=== PATIENT | female | born 1990 | race Caucasian/White ===

== ENCOUNTER → 2016-09-12 | Outpatient (CLI) | payer OTHER ==
--- NOTE | 2016-09-12 15:21 | US ---
Neck ultrasound Indication: Left supraclavicular area that is palpable. Technique: Supraclavicular limited ultrasound was performed. Findings: Multiple lymph nodes are found in the supraclavicular region, at least 6. The largest ones are as follows: 1.4 cm x 1.1 x 1.4 cm; 1.8 x 1.3 x 2 cm; and 0.8 x 0.6 x 1.1 cm. These are ovoid, wit h increased vascularity. The largest 2-cm lesion above dictated doesn't seem to have a central fatty hilum. However, I do not see a normal fatty hilum in the other two lymph nodes that are measured. The y are well circumscribed. Otherwise, smaller shotty lymph nodes are seen. The carotid and jugular vascular anatomy are normal. Impression: Multiple lymph nodes at the left supraclavicular area. Overall, they have a full, hypoec hoic character, some without normal central fatty hilum. I am concerned in general of an infiltrative process as the source of this. Reactive lymphadenopathy, if patient does clinically have a reason fo r it from an infectious standpoint, is not completely ruled out, however. A follow-up required message has been communicated to ALMA ROSA Phelps via the [employer] Critical Result system on 09/12/2016 14:21, Message ID [id number].
== END ==
LOC: FIMAGING 08:53
PROVIDERS: ATTEND Physician Assistant
DX: R59.0 Localized enlarged lymph nodes (principal)

== ENCOUNTER → 2016-09-23 | Outpatient (CLI) | payer OTHER ==
[~2016-09-23] MED LIST: LIDOCAINE 1% 30 ML SDV ONE; NA BICARBONATE 50 MEQ/50 ML VIAL ONE
--- NOTE | 2016-09-23 11:24 | US ---
Ultrasound-Guided Left Supraclavicular Lymph Node Biopsy History: 26-year-old with left supraclavicular adenopathy. PQRS Crosscutting Measure #226: Current tobacco user: No. Comparison: Neck ultrasound September 12, 2016. Procedure: Prior to the procedure, the risks, benefits, and alternatives were discussed with the pat ient and informed written consent was obtained. A preprocedure ultrasound demonstrated numerous enlar ged left subclavicular lymph nodes, with a dominant 2.1 x 1.3 cm left supraclavicular lymph node iden tified for biopsy. A time out was performed. An overlying area of skin was marked, cleaned with Chlo raprep and sterilely draped. The skin and soft tissues were anesthetized with buffered 1% lidocaine. A 17-gauge coaxial needle was advanced to the margin of the lesion under ultrasound visualization usi ng sterile gel and a sterile probe cover. 6 18-gauge core biopsies were obtained and sent to patholo nilam, with 2 passes placed in Adelso's solution. The coaxial needle was removed and hemostasis was obtain ed with manual pressure. A bandage was placed. The patient tolerated the procedure well. Impression: Ultrasound-guided left supraclavicular lymph node biopsy as above.
[2016-09-26 14:54] LABS: FINAL DIAGNOSIS See Comments (()); MICROSCOPIC DESCRIPTION See Comments (())
== END ==
LOC: FIMAGING 09:39
PROVIDERS: ATTEND Internal Medicine Hematology & Oncology
PROC: 07B23ZX Excision of Left Neck Lymphatic, Percutaneous Approach, Diagnostic (ICD-10-PCS; principal; 2016-09-23)
DX: R59.0 Localized enlarged lymph nodes (principal)
CPT/HCPCS: 88184-90; 88185-91

== ENCOUNTER 2018-08-08 23:26 | Observation (INO) | payer MEDICAID | END 2018-08-09 00:31 | disposition home or self-care (01) | LOC: FLD 23:26 | PROVIDERS: ADMIT Obstetrics & Gynecology; ATTEND Obstetrics & Gynecology | DX: Z03.79 Encounter for other suspected maternal and fetal conditions ruled out (principal) | CPT/HCPCS: 59025; G0378 ==

== ENCOUNTER 2018-08-11 06:00 | Inpatient (IN) | payer MEDICAID ==
--- NOTE | 2018-08-10 18:24 | GHP ---
DATE OF ADMISSION: 08/11/2018 ADMITTING DIAGNOSES: 1. Intrauterine at 41 weeks and 1 day. 2. Induction of labor secondary to postdates. 3. Grade 3 placenta with numerous calcifications. HISTORY OF PRESENT ILLNESS: Patient is a 28-year-old 3, para 2-0-0-2, at 41 weeks and 1 day with estimated due date 08/03/2018 by last menstrual period 10/27/2017, and consistent with 12 week ultrasound. The patient presented to the office for routine visit. She states she is done being and wants to have the induction today. On exam she was found to be 1-2 cm, 50% effaced, -3 station. She states she is having irregular contractions that are annoying, but not painful. Good movement noted. Denies any leakage of fluid or vaginal bleeding. Today, an ultrasound was done that revealed an NAHOMY of 7.2 cm, however, grade 3 placenta with multiple calcifications. NST was done in the office that was reactive with Category 1 tracing. Discussed her cervix is unfavorable and will plan placement of Mason this afternoon in the office and Pitocin on Labor and Delivery with start of antibiotics for GBS in urine at 6 a.m. on 08/12. The patient was a transfer of care at 20 weeks and presented from [facility]. Anatomy scan was normal, size equals dates. Positive GBS bacteriuria on [facility] records. 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 Follow-up CXR was negative. Patient received Tdap during the . PAST OBSTETRICAL HISTORY: In 04/2011, she had a vaginal delivery to a viable female infant at 40 weeks, weighing 7 pounds 4 ounces, and had increased bleeding. In July 2013, she had another vaginal delivery at 40 weeks, a viable female weighing 6 pounds 4 ounces and had a hemorrhage and positive GBS. The patient did not need a blood transfusion. PAST GYNECOLOGICAL HISTORY: Age of menarche 11. Menstrual cycles are every 28 days for 7 days. LMP 10/27/2017. Positive test mid November 2017. The patient denies a history of abnormal Pap smears or any exposure to sexually transmitted diseases. 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 Denies any genital lesions. CURRENT MEDICATIONS: Include vitamins, DHA. ALLERGIES: No known drug allergies. PAST MEDICAL HISTORY: Positive PPD 2016, treatment with INH in 2016. The patient does have a history of migraines with Nexplanon. PAST SURGICAL HISTORY: Appendectomy in 2011. FAMILY HISTORY: Maternal grandmother with type 2 diabetes. Mother with lupus. Paternal aunt, breast cancer diagnosed at 34 years of age. SOCIAL HISTORY: Patient is and lives with her , and their 2 daughters. She is a teacher, . She denies any alcohol, tobacco, or illicit drug use. REVIEW OF SYSTEMS: 10-point review of systems is negative. Pertinent positives noted in HPI. LABS: H and H, 14.2 and 41.3, platelets 346. Blood type O positive, antibody negative. RPR nonreactive. Rubella immune. Hepatitis B surface antigen negative. HIV negative. Parvovirus nonimmune. UDS was negative. UA positive, GBS on culture 01/22/2018. Pap smear negative 2015. GC, chlamydia cultures negative 01/22/2018. H and H third-trimester, 13.3 and 38.9, platelets 299. One hour Glucola was 74. Again, the patient did receive Tdap. Declined the flu vaccine. ADMISSION PHYSICAL EXAMINATION: VITAL SIGNS: Stable. GENERAL: Patient is afebrile, well-nourished, well-developed female. Alert and oriented x3 in no apparent distress. SKIN: Warm, dry without rash. NEURO: Grossly intact. CARDIOVASCULAR: Regular rate and rhythm. LUNGS: Clear to auscultation bilaterally. ABDOMEN: Gravid, soft, nontender. PELVIC: Exam in the office she was noted to be 1-2 cm dilated, 50%, -3. EXTREMITIES: Normal to inspection without calf tenderness or edema. Ultrasound did reveal cephalic presentation. ASSESSMENT/PLAN: Patient is a 28-year-old 3, para 2-0-0-2, at 41 weeks and 1 day for induction of labor secondary to postdates and a grade 3 placenta with numerous calcifications. 1. Admit to Labor and Delivery for induction of labor. 2. The patient had a Mason bulb placed last evening that was inflated with 30 cc of normal saline. Patient tolerated well. No complications. 3. We will start Pitocin per protocol. 4. We will treat with penicillin-G for group B streptococcus prophylaxis. 5. Anticipate spontaneous vaginal delivery. /[id number]/MODL MTDD
[2018-08-11] MEDS ORDERED: AMMONIA AROMATIC 1 EACH AMP IH PRN (06:38)
[2018-08-11] MEDS ORDERED: MISOPROSTOL 200 MCG TAB PO PRN (06:38)
[2018-08-11] MEDS ORDERED: IBUPROFEN 600 MG TAB PO PRN (06:38)
[2018-08-11] MEDS ORDERED: LIDOCAINE 1% 300 MG/30 ML SDV SC PRN (06:38)
[2018-08-11] MEDS ORDERED: TERBUTALINE SULFATE 1 MG/ML VIAL IV PRN (06:38)
[2018-08-11] MEDS ORDERED: LR 500 ML IV PRN (06:38)
[2018-08-11] MEDS ORDERED: OXYTOCIN/RINGERS LACTATE 1,000 ML IV PRN (06:38)
[2018-08-11] MEDS ORDERED: OXYTOCIN/RINGERS LACTATE 500 ML IV SCH (06:38)
[2018-08-11] MEDS ORDERED: OLIVE OIL 118 ML BTL MISC PRN (06:38)
[2018-08-11] MEDS ORDERED: EPSOM SALT 454 GM TP PRN (06:38)
[2018-08-11] MEDS ORDERED: LR 1,000 ML IV PRN (06:38)
[2018-08-11 07:01] LABS: PLATELET COUNT 241 10^3/uL (150-400)
[2018-08-11] MEDS ORDERED: PENICILLIN G POTASSIUM 2,500,000 UNIT in D5W 150 ML IV SCH (07:15)
[2018-08-11] MEDS ORDERED: AMPICILLIN SODIUM 2 GM in NS 100 ML IV ONE (08:00)
--- NOTE | 2018-08-11 10:48 | OBPROG ---
Labor Progress Note Assessment/Plan: Assessment: 28 y/o [id number] @ 411/7 IOL secondary to post dates on pitocin Plan: status is reassuring, continue pitocin and I encouraged ambulation this am. Will await 2nd dose of Ampicillin and then attempt AROM. Pt has a h/o PPH with G2. We will have meds for preparation. 08/11/18 10:49 Subjective/Intrapartum Course: 08/11/18 10:23 Pt rested well overnight and this am. She is just beginning to feel some tightening and lost her mucus plug when voiding. Good FM, no LOF. Objective: 08/11/18 06:40 Patient ABO/Rh O POSITIVE 08/11/18 06:40 - SVE Dilation (cm): 3 Effacement (%): 50 Station: -3 Membranes: Intact - Contraction Pattern Assessment Current Contraction Pattern: Irregular - FHR Assessment Andujar FHR (bpm): 140 FHR Pattern Variability: Moderate FHR Category: 1 - AP Antepartum Course: 08/11/18 10:24 + GBS bacturia H/o +PPD s/p INH H/o PPH with G2 Oxytocin Orders Assessment - Pre-Induction/Augmentation Assessment Gestational Age: 41 week(s) and 1 day(s) ICD10 Worksheet Patient Problems: Problems Problem Status Onset Encounter for induction of labor Acute - ICD10 Problem Qualifiers (1) Encounter for induction of labor
[2018-08-11] MEDS ORDERED: AMMONIA AROMATIC 1 EACH AMP IH ONE (11:22)
[2018-08-11] MEDS ORDERED: TERBUTALINE SULFATE 1 MG/ML VIAL ONE (11:22)
[2018-08-11] MEDS ORDERED: MISOPROSTOL 200 MCG TAB ONE (11:22)
[2018-08-11] MEDS ORDERED: OXYTOCIN 10 UNIT/ML VIAL ONE (11:22)
[2018-08-11] MEDS ORDERED: LIDOCAINE 1% 300 MG/30 ML SDV ONE (11:22)
[2018-08-11] MEDS ORDERED: OLIVE OIL 118 ML BTL ONE (11:22)
[2018-08-11] MEDS: AMPICILLIN SODIUM 1 GM in NS 100 ML IV SCH ×2 (12:30→16:38)
--- NOTE | 2018-08-11 13:40 | OBPROG ---
Labor Progress Note Assessment/Plan: Assessment: 28 y/o [id number] @ 411/7 IOL secondary to post dates on pitocin Plan: Pt is having pain with vaginal exams, due to posterior positioning of her cervix. We discussed AROM, which I feel would augment her labor and help avoid high doses of pitocin. She would like to try nitrous for the AROM, so we are setting that up now. status is reassuring. 08/11/18 10:49 08/11/18 13:32 Subjective/Intrapartum Course: 08/11/18 10:23 Pt rested well overnight and this am. She is just beginning to feel some tightening and lost her mucus plug when voiding. Good FM, no LOF. 08/11/18 13:31 Pt is feeling more painful contractions and pelvic pressure. She has been ambulating this am, and has had her 2nd dose of Ampicillin. Objective: 08/11/18 06:40 Patient ABO/Rh O POSITIVE 08/11/18 06:40 - SVE Dilation (cm): 5 Effacement (%): 75 Station: -2 Membranes: Intact - Contraction Pattern Assessment Current Contraction Pattern: Irregular - FHR Assessment Andujar FHR (bpm): 130 FHR Pattern Variability: Moderate FHR Category: 1 - AP Antepartum Course: 08/11/18 10:24 + GBS bacturia H/o +PPD s/p INH H/o PPH with G2 Oxytocin Orders Assessment - Pre-Induction/Augmentation Assessment Gestational Age: 41 week(s) and 1 day(s) ICD10 Worksheet Patient Problems: Problems Problem Status Onset Encounter for induction of labor Acute - ICD10 Problem Qualifiers (1) Encounter for induction of labor
--- NOTE | 2018-08-11 15:16 | OBPROG ---
Labor Progress Note Assessment/Plan: Assessment: 28 y/o [id number] @ 411/7 IOL secondary to post dates on pitocin Plan: Pt is making good progress in cervical dilation. status is reassuring, she is tolerating contractions well. I will check in 1 hour or prn sooner if she begins to feel the urge to push between contractions. 08/11/18 10:49 08/11/18 13:32 08/11/18 15:15 Subjective/Intrapartum Course: 08/11/18 10:23 Pt rested well overnight and this am. She is just beginning to feel some tightening and lost her mucus plug when voiding. Good FM, no LOF. 08/11/18 13:31 Pt is feeling more painful contractions and pelvic pressure. She has been ambulating this am, and has had her 2nd dose of Ampicillin. 08/11/18 15:13 Pt is getting much more uncomfortable, starting to feel more pelvic pressure and the urge to push. She was laboring in the tub well, and has used NO for discomfort with exams and some contractions. Objective: 08/11/18 06:40 Patient ABO/Rh O POSITIVE 08/11/18 06:40 - SVE Dilation (cm): 7 Effacement (%): 80 Station: -1 Membranes: AROM, Intact Amniotic Fluid Color: Clear - Contraction Pattern Assessment Current Contraction Pattern: Irregular (Q 2-3) - FHR Assessment Andujar FHR (bpm): 140 FHR Pattern Variability: Moderate FHR Category: 1 - Procedures Non-surgical Procedures: Amniotomy - AP Antepartum Course: 08/11/18 10:24 + GBS bacturia H/o +PPD s/p INH H/o PPH with G2 Oxytocin Orders Assessment - Pre-Induction/Augmentation Assessment Gestational Age: 41 week(s) and 1 day(s) ICD10 Worksheet Patient Problems: Problems Problem Status Onset Encounter for induction of labor Acute - ICD10 Problem Qualifiers (1) Encounter for induction of labor
--- NOTE | 2018-08-11 16:31 | OBPROG ---
Labor Progress Note Assessment/Plan: Assessment: 28 y/o [id number] @ 411/7 IOL secondary to post dates on pitocin Plan: Pt is making good steady progress. She is going to try to get back into the tub , I will re-check in another hour, or prn sooner. status is reassuring. 08/11/18 10:49 08/11/18 13:32 08/11/18 15:15 08/11/18 16:30 Subjective/Intrapartum Course: 08/11/18 10:23 Pt rested well overnight and this am. She is just beginning to feel some tightening and lost her mucus plug when voiding. Good FM, no LOF. 08/11/18 13:31 Pt is feeling more painful contractions and pelvic pressure. She has been ambulating this am, and has had her 2nd dose of Ampicillin. 08/11/18 15:13 Pt is getting much more uncomfortable, starting to feel more pelvic pressure and the urge to push. She was laboring in the tub well, and has used NO for discomfort with exams and some contractions. 08/11/18 16:29 She is feeling more pressure and painful contractions, she has had episodes of n /v as well. She is feeling the urge to push now between contractions. Objective: 08/11/18 06:40 Patient ABO/Rh O POSITIVE 08/11/18 06:40 - SVE Dilation (cm): 8 Effacement (%): 100 Station: 0 Membranes: AROM, Intact Amniotic Fluid Color: Clear - Contraction Pattern Assessment Current Contraction Pattern: Regular (Q 2-3), Irregular (Q 2-3) - FHR Assessment Andujar FHR (bpm): 140 FHR Pattern Variability: Moderate FHR Category: 1 - Procedures Non-surgical Procedures: Amniotomy - AP Antepartum Course: 08/11/18 10:24 + GBS bacturia H/o +PPD s/p INH H/o PPH with G2 Oxytocin Orders Assessment - Pre-Induction/Augmentation Assessment Gestational Age: 41 week(s) and 1 day(s) ICD10 Worksheet Patient Problems: Problems Problem Status Onset Encounter for induction of labor Acute - ICD10 Problem Qualifiers (1) Encounter for induction of labor
[2018-08-11] MEDS ORDERED: SIMETHICONE 80 MG TAB CHEW PO PRN (17:48)
[2018-08-11] MEDS ORDERED: oxyCODONE IR 5 MG TAB PO PRN (17:48)
[2018-08-11] MEDS ORDERED: HYDROCORTISONE 0.5% CREAM TP PRN (17:48)
--- NOTE | 2018-08-11 17:52 | OBDEL ---
Info Type: Vaginal Presentation at Delivery: Vertex L&D Analgesia/Anesthesia Type: Nitrous GBS+: Yes Antibiotic Used for + GBS: Ampicillin Intrapartum Medications: Generic Name Dose Route Start Last Admin Trade Name Freq PRN Reason Stop Dose Admin Lactated Ringer's 1,000 mls @ 0 mls/hr 08/11/18 06:38 08/11/18 08:25 Lr IV 08/12/18 06:37 1,000 mls PRN PRN Administration SEE PROTOCOL CONDITIONS Protocol Per Protocol Oxytocin/Lactated Ringer's 500 mls @ 0 mls/hr 08/11/18 06:38 08/11/18 08:25 Pitocin 30 Units/Lr (Premix) IV 02/07/19 06:37 500 mls CONT GILBERT Administration Protocol Per Protocol Ampicillin Sodium 1 gm/ Sodium 100 mls @ 200 mls/hr 08/11/18 12:00 08/11/18 16:38 Chloride IV 09/10/18 11:59 100 mls Q4H GILBERT Administration Discontinued Medications Generic Name Dose Route Start Last Admin Trade Name Freq PRN Reason Stop Dose Admin Ampicillin Sodium 2 gm/ Sodium 110 mls @ 220 mls/hr 08/11/18 08:00 08/11/18 08:26 Chloride IV 08/11/18 08:29 110 mls ONCE ONE Administration - Hospital Course Intrapartum: 08/11/18 10:23 Pt rested well overnight and this am. She is just beginning to feel some tightening and lost her mucus plug when voiding. Good FM, no LOF. 08/11/18 13:31 Pt is feeling more painful contractions and pelvic pressure. She has been ambulating this am, and has had her 2nd dose of Ampicillin. 08/11/18 15:13 Pt is getting much more uncomfortable, starting to feel more pelvic pressure and the urge to push. She was laboring in the tub well, and has used NO for discomfort with exams and some contractions. 08/11/18 16:29 She is feeling more pressure and painful contractions, she has had episodes of n /v as well. She is feeling the urge to push now between contractions. Indications for Delivery: Postterm Unfavorable Cervix Vaginal Delivery - Delivery Provider Delivery Physician/CNM: Juhi Dykes - Labor and Delivery Onset of Contractions Date: 08/11/18 Onset of Contractions Time: 13:46 Onset of Contractions Type: Induced Rupture of Membranes Date: 08/11/18 Rupture of Membranes Time: 13:46 Rupture of Membranes Type: Artificial Amniotic Fluid Color: Clear Dilation Complete Date: 08/11/18 Dilation Complete Time: 17:25 Placenta Delivery Date: 08/11/18 Placenta Delivery Time: 17:37 Total Hours of Labor: 3 Non-surgical Procedures: Amniotomy Laceration: Other (Specify) (none, intact perineum) Vaginal Sponge Count Correct: Yes Vaginal Needle Count Correct: Yes Vaginal Sweep Performed: Yes EBL: 200 Delivery Events: None - Medications Labor Augmentation/Induction Methods Used: Pitocin, Mason Bulb Labor Augmentation/Induction Indication: Post Dates [place] Data THELMA: 08/03/18 Gestational Age: 41 week(s) and 1 day(s) Andujar Delivery Date: 08/11/18 Delivery Time: 17:32 Sex of Infant: Male Score (1 Min): 8 Score (5 Min): 9 ICD10 Worksheet Patient Problems: Problems Problem Status Onset Encounter for induction of labor Acute (spontaneous vaginal delivery) Acute - ICD10 Problem Qualifiers (1) Encounter for induction of labor (2) (spontaneous vaginal delivery)
[2018-08-11] MEDS: ACETAMINOPHEN 325 MG TAB PO SCH (20:07)
[2018-08-12] MEDS: IBUPROFEN 600 MG TAB PO SCH ×4 (02:09→22:30)
[2018-08-12] MEDS: ACETAMINOPHEN 325 MG TAB PO SCH ×4 (02:09→22:30)
[2018-08-12] MEDS: AMPICILLIN SODIUM 1 GM in NS 100 ML IV SCH ×2 (02:45→02:47)
[2018-08-12] MEDS: DOCUSATE SODIUM 100 MG CAP PO PRN ×2 (08:48→22:31)
--- NOTE | 2018-08-12 12:03 | OBPP ---
Progress Note Assessment/Plan: Assessment: s/p PPD # 1 - pt is stable Plan: Continue routine pp care Plan for d/c home in am 08/1308/12/18 12:01 Subjective/ Course: 08/12/18 12:01 Pt seen and examined. Doing well with no complaints. Some mild cramping with BF , relief with Motrin. Mod lochia. Pt is OOB, xu regular diet, voiding and passing flatus. No BM yet. BF is going well. Wants to stay another night. Objective: 08/11/18 06:40 Patient ABO/Rh O POSITIVE 08/11/18 06:40 Temp Pulse Resp BP Pulse Ox 36.2 C 82 16 118/68 92 08/12/18 08:00 08/12/18 08:00 08/12/18 08:00 08/12/18 08:00 08/12/18 05:00 Uterine Position/Fundal Height: Umbilicus -2 Uterine Tone: Firm Physical Exam - Physical Exam General Appearance: WD/WN, alert, no apparent distress Respiratory: lungs clear, normal breath sounds Cardiac/Chest: regular rate, rhythm Abdomen: normal bowel sounds, non-tender, soft, flatus (+) Extremities: non-tender, normal inspection Skin: normal color, warm/dry Neuro/Psych: alert, normal mood/affect, oriented x 3
[2018-08-13] MEDS: ACETAMINOPHEN 325 MG TAB PO SCH ×2 (05:21→07:46)
[2018-08-13] MEDS: IBUPROFEN 600 MG TAB PO SCH ×2 (05:22→07:47)
[2018-08-13 08:15] VITALS: BP 113/71
--- NOTE | 2018-08-13 09:20 | OBPP ---
Progress Note Assessment/Plan: Assessment: 28 y/o PPD #2 s/p doing well Plan: D/c home today. 08/11/18 10:49 08/11/18 13:32 08/11/18 15:15 08/11/18 16:30 08/13/18 09:19 Subjective/ Course: 08/12/18 12:01 Pt seen and examined. Doing well with no complaints. Some mild cramping with BF , relief with Motrin. Mod lochia. Pt is OOB, xu regular diet, voiding and passing flatus. No BM yet. BF is going well. Wants to stay another night. 08/13/18 09:18 Pt is doing well, min cramping controlled with po meds, No n/v, min lochia. BF is going well. Pain controlled with Ibuprofen, they are ready to go home. Objective: 08/11/18 06:40 Patient ABO/Rh O POSITIVE 08/11/18 06:40 Temp Pulse Resp BP Pulse Ox 36.2 C 65 16 113/71 995 H 08/13/18 08:14 08/13/18 08:14 08/13/18 08:14 08/13/18 08:14 08/13/18 08:14 Uterine Position/Fundal Height: Umbilicus -2 Uterine Tone: Firm Physical Exam - Physical Exam General Appearance: alert, no apparent distress Neck: non-tender, full range of motion, supple Respiratory: chest non-tender, lungs clear, normal breath sounds Cardiac/Chest: regular rate, rhythm Abdomen: normal bowel sounds Extremities: swelling (tr), Jeannie's sign (neg)
--- NOTE | 2018-08-13 09:20 | OBGCSDC ---
General Delivery Information - General Info : 3 Para: 3 Abortions: 0 Type: Vaginal L&D Analgesia/Anesthesia Type: Nitrous Admission Date: 08/11/18 Labs: Patient ABO/Rh O POSITIVE 08/11/18 06:40 Hct 39.8 % (38.0-47.0) 08/11/18 06:40 - Hospital Course Antepartum: 08/11/18 10:24 + GBS bacturia H/o +PPD s/p INH H/o PPH with G2 Intrapartum: 08/11/18 10:23 Pt rested well overnight and this am. She is just beginning to feel some tightening and lost her mucus plug when voiding. Good FM, no LOF. 08/11/18 13:31 Pt is feeling more painful contractions and pelvic pressure. She has been ambulating this am, and has had her 2nd dose of Ampicillin. 08/11/18 15:13 Pt is getting much more uncomfortable, starting to feel more pelvic pressure and the urge to push. She was laboring in the tub well, and has used NO for discomfort with exams and some contractions. 08/11/18 16:29 She is feeling more pressure and painful contractions, she has had episodes of n /v as well. She is feeling the urge to push now between contractions. : 08/12/18 12:01 Pt seen and examined. Doing well with no complaints. Some mild cramping with BF , relief with Motrin. Mod lochia. Pt is OOB, xu regular diet, voiding and passing flatus. No BM yet. BF is going well. Wants to stay another night. 08/13/18 09:18 Pt is doing well, min cramping controlled with po meds, No n/v, min lochia. BF is going well. Pain controlled with Ibuprofen, they are ready to go home. Vaginal - Delivery Provider Delivery Physician/CNM: Juhi Dykes - Diagnosis Labor: Induced Rupture of Membranes Type: Artificial Amniotic Fluid Color: Clear Laceration: Other (Specify) (none, intact perineum) Delivery Events: None - Procedures Non-surgical Procedures: Amniotomy - Delivery Non-surgical Procedures: Amniotomy EBL: 200 [place] Data THELMA: 08/03/18 Gestational Age: 41 week(s) and 3 day(s) Andujar Delivery Date: 08/11/18 Delivery Time: 17:32 Sex of Infant: Male [place] Weight (gm): 3248 g Score (1 Min): 8 Score (5 Min): 9 Discharge Information - Discharge Information Condition: Good Instruction/Follow Up: Four Weeks, Six Weeks
== END 2018-08-13 09:47 | disposition home or self-care (01) | DRG 560 ==
LOC: FLD 06:19 → FOB 20:16
PROVIDERS: ADMIT Obstetrics & Gynecology; ATTEND Obstetrics & Gynecology
DX: O48.0 Post-term pregnancy (principal); O99.820 Streptococcus B carrier state complicating pregnancy; O43.893 Other placental disorders, third trimester; Z3A.41 41 weeks gestation of pregnancy; Z37.0 Single live birth
CPT/HCPCS: J0290; J2540; J2590; J3105